=== PATIENT | female | born 1950 | race Caucasian/White ===

== ENCOUNTER 2017-11-02 14:53 | Emergency (ER) | payer BC ==
[2017-11-02 15:02] VITALS: BP 143/58
--- NOTE | 2017-11-02 15:09 | UC ---
Hand/Wrist HPI - HPI Summary HPI Summary: Foosh left wrist at 5:30 this morning--pain and swelling in wrist - History Of Current Complaint Chief Complaint: UCUpperExtremity Stated Complaint: WRIST INJURY Time Seen by Provider: 11/02/17 15:08 Hx Obtained From: Patient ?: No Mechanism Of Injury: Foosh Onset/Duration: Sudden Onset, Lasting Hours Severity Initially: Moderate Severity Currently: Moderate Pain Intensity: 5 Character Of Pain: Sharp, Aching Aggravating Factor(s): Movement Alleviating Factor(s): Rest Associated Signs And Symptoms: Positive: Swelling Related History: Dominant Hand Right - Allergies/Home Medications Allergies/Adverse Reactions: Allergies Allergy/AdvReac Type Severity Reaction Status Date / Time No Known Allergies Allergy Verified 11/02/17 15:02 PMH/Surg Hx/FS Hx/Imm Hx Endocrine History: Hypothyroidism, Dyslipidemia Cardiovascular History: Hypertension Other History Of: Negative For: HIV, Hepatitis B, Hepatitis C, Anticoagulant Therapy - Surgical History Surgical History: Yes Surgery Procedure, Year, and Place: plate to lt knee, eye lid surgery - Family History Known Family History: Positive: Cardiac Disease Negative: Hypertension - Social History Occupation: Employed Full-time Lives: With Family Alcohol Use: Rare Substance Use Type: None Smoking Status (MU): Former Smoker Review of Systems Constitutional: Negative Skin: Negative Eyes: Negative ENT: Negative Respiratory: Negative Cardiovascular: Negative Gastrointestinal: Negative Genitourinary: Negative Motor: Negative Neurovascular: Negative Musculoskeletal: Arthralgia - left wrsit Neurological: Negative Psychological: Negative Is Patient Immunocompromised?: No All Other Systems Reviewed And Are Negative: Yes Physical Exam Triage Information Reviewed: Yes Appearance: Well-Appearing, Well-Nourished, Pain Distress - mild Vital Signs: Initial Vital Signs Temp 98.1 F 11/02/17 14:58 Pulse 69 11/02/17 14:58 Resp 20 11/02/17 14:58 BP 143/58 11/02/17 14:58 Pulse Ox 98 11/02/17 14:58 Vital Signs Reviewed: Yes Eye Exam: Normal Eyes: Positive: Conjunctiva Clear ENT Exam: Normal ENT: Positive: Normal ENT inspection, Hearing grossly normal. Negative: Nasal drainage, Trismus, Muffled voice, Hoarse voice, Dental tenderness Dental Exam: Normal Neck exam: Normal Neck: Positive: Supple, Nontender Respiratory Exam: Normal Respiratory: Positive: Chest non-tender, No respiratory distress, No accessory muscle use Cardiovascular Exam: Normal Cardiovascular: Positive: RRR, Pulses Normal, Brisk Capillary Refill Musculoskeletal Exam: Normal Musculoskeletal: Positive: Strength Limited @ - left wrist, ROM Limited @ - left wrist, Edema @ - left wrist Neurological Exam: Normal Neurological: Positive: Alert, Muscle Tone Normal Psychological Exam: Normal Skin Exam: Normal Diagnostics - Radiology No standard instances Xray Interpretation: Positive (See Comments) - dorsal angulated, shortened, distal radial fracture Radiology Interpretation Completed By: Radiologist Re-Evaluation - Re-Evaluation First Eval Change: Improved - sugar darya splint applied, with increase comfort n/m/c intact before and after splinting Hand/Wrist Course/Dx - Course Course Of Treatment: RICE, pain control follow with ortho, follow BP with pcp - Differential Dx/Diagnosis Provider Diagnoses: Angulated distal radius fracture, elevated blood pressure in poor control Discharge - Discharge Plan Condition: Stable Disposition: HOME Prescriptions: Hydrocodone-Acetaminophen [Hydrocodone/Acetaminophen 5-325 mg] 1 tab PO Q6H PRN #10 tab MDD 4 PRN Reason: Pain - Moderate To Severe Ibuprofen TAB* [Motrin TAB* 600 MG] 600 mg PO Q6H PRN #40 tab PRN Reason: Pain - Mild To Moderate Patient Education Materials: Wrist Fracture in Adults (ED), Hypertension (ED), R.I.C.E. Treatment (ED) Referrals: Marilee Ojeda RN [Primary Care Provider] - 2 Weeks Henri Mason MD [Medical Doctor] - 11/03/17 3:00 pm
[2017-11-02] MEDS ORDERED: Ibuprofen TAB* 600 MG PO ONE (15:17)
--- NOTE | 2017-11-02 15:33 | RAD ---
Indication: Fall on left wrist. 3 views of the wrist demonstrates fracture of the distal radius with dorsal angulation and foreshortening. IMPRESSION: Fracture distal radius with foreshortening and dorsal angulation.
== END 2017-11-02 16:53 | disposition home or self-care (01) ==
LOC: UCEAST 14:53
DX: S52.502A Unspecified fracture of the lower end of left radius, initial encounter for closed fracture (principal); W19.XXXA Unspecified fall, initial encounter; Y93.9 Activity, unspecified; Y92.9 Unspecified place or not applicable; R03.0 Elevated blood-pressure reading, without diagnosis of hypertension; Z87.891 Personal history of nicotine dependence
CPT/HCPCS: 99212; A9270-GY; G0463

== ENCOUNTER 2017-11-09 12:06 | Day surgery (SDC) | payer BC ==
[~2017-11-09 12:06] MED LIST: Buffered Lidocaine 0.9% SYRIN* 5 ML/SYR SYRINGE INTRADERM ONE; Bupivacaine 0.25% SDV* 30 ML ONE; Dexamethasone IV* 4 MG/ML 1 ML (4 MG) IV SLOW PU ONE; Famotidine IV* 10 MG/ML 2 ML (20 mg) IV ONE
[2017-11-09] MEDS ORDERED: Midazolam* 1 MG/ML 2 ML VIAL (2 MG) ONE (12:19)
[2017-11-09] MEDS ORDERED: fentaNYL* 50 MCG/ML 2 ML VIAL (100 MCG VIAL) ONE (12:19)
[2017-11-09] MEDS ORDERED: Buffered Lidocaine 0.9% SYRIN* 5 ML/SYR SYRINGE ONE (12:39)
[2017-11-09] MEDS ORDERED: Dexamethasone IV* 4 MG/ML 1 ML (4 MG) ONE ×2 (12:39→15:14)
[2017-11-09] MEDS ORDERED: ceFAZolin 2 GM PREMIX (*) 2 GM/50 ML BAG IVPB ONE (12:39)
[2017-11-09] MEDS ORDERED: Famotidine IV* 10 MG/ML 2 ML (20 mg) ONE (12:42)
[2017-11-09] MEDS ORDERED: Naloxone* 0.4 MG/ML 1 ML VIAL IV PRN (14:29)
[2017-11-09] MEDS ORDERED: Ondansetron INJ* 2 MG/ML VIAL ONE (15:14)
[2017-11-09] MEDS ORDERED: Propofol* 10 MG/ML 20 ML BTL IV PUSH ONE (15:14)
[2017-11-09] MEDS ORDERED: Lidocaine 2% PF * 5 ML VIAL ONE (15:15)
[2017-11-09] MEDS ORDERED: Bupivacaine 0.5% W/EPI SDV* 30 ML VIAL ONE (15:15)
[2017-11-09 16:54] VITALS: BP 143/61
--- NOTE | 2017-11-10 08:32 | RAD ---
CPT II Codes: 6045F INDICATION: Left distal radius fracture TECHNIQUE: Intraoperative fluoroscopy was provided during left wrist ORIF.. FINDINGS: 6 spot films depict anatomic placement of a left distal radius plate and screw fixator.. Fluoroscopy time: 47 seconds IMPRESSION: As above.
--- NOTE | 2017-11-10 14:43 | OP ---
DATE OF OPERATION: 11/09/17 - [facility] DATE OF : 50 SURGEON: Henri Mason MD DIRECTOR OF RADIO SERVICES: SHY Sheffield. An program support assistant was needed for the entirety of the procedure to aid in position of the arm in retraction. ANESTHESIOLOGIST: Jacquelyn Foster MD ANESTHESIA: Peripheral nerve block plus general. PRE-OP DIAGNOSIS: Left intraarticular distal radius fracture. POST-OP DIAGNOSIS: Left intraarticular distal radius fracture. OPERATIVE PROCEDURE: Open reduction internal fixation left intraarticular, greater than 3 fragments, distal radius fracture. INDICATIONS: Jena had a very displaced and shortened distal radius fracture. We talked about risks and benefits. She had elected to proceed with surgery. ESTIMATED BLOOD LOSS: 10 mL. COMPLICATIONS: None. FINDINGS: Highly comminuted distal radius fracture. It is extremely impacted. DESCRIPTION OF PROCEDURE: Jena was seen in the preoperative holding area. We came back to the operating room. A nerve block was performed. The arm was prepped and draped in the usual fashion. A time-out was performed. I made a longitudinal incision over the distal aspect of the FCR tendon. The FCR tendon sheath was released. The tendon was retracted ulnarly. The subsheath was released. The pronator quadratus was released off the radial aspect of its radial margin and teed back distally preserving the distal 3 mm of extrinsic capsular ligament. The fracture site was seen. It was removed to its soft tissue. It was irrigated out and fracture fragments were mobilized. I then placed the hand in the Arthrex traction hand landrum. 10 pounds of traction were hung off at the end of the bed. I performed closed reduction maneuver and got the fragments aligned. The bone was very soft and delicate. We were able to get it nicely lined up. At this point, I brought in my plates and I measured them. The distal 5 hole plate was too wide and so I just selected the standard plate. This was placed on the volar aspect of the distal radius just from the ulnar margin of the bone. The plate was pinned into place. Fluoroscopic images confirmed placement of the plate. I went ahead and placed one 2.4-mm cortical screw in the oblong hole. I then placed the 4 distal locking screws, the 3 most ulnar were standard locking screws. The radial styloid screw was a variable angle screw. Once these screws were in place, I went ahead and checked the reduction. Everything looked very nice. I filled in 2 more proximal holes with 2.4-mm cortical screws. I filled the 2 more distal screws with locking screw. At this point, I checked final fluoroscopic imaging. The reduction looked excellent. The placement of the plate nicely on the ulnar side of the bone. The fragments were in excellent alignment. Traction had been removed. We irrigated out the wound copiously. The pronator was closed with 2-0 Vicryl suture. The skin was closed with 4-0 Monocryl and Steri-Strips. The wound was dressed with Xeroform, 4x4s, sterile Webril, and a cock-up wrist splint was applied. Tourniquet was deflated. She was taken to the recovery room in stable condition. [id number]/CPS #: [id number] MTDD
== END 2017-11-09 17:40 | disposition home or self-care (01) ==
LOC: OR 12:06
PROVIDERS: ATTEND Orthopaedic Surgery Hand Surgery
DX: S52.572A Other intraarticular fracture of lower end of left radius, initial encounter for closed fracture (principal); I10 Essential (primary) hypertension; E78.5 Hyperlipidemia, unspecified; E03.9 Hypothyroidism, unspecified; W00.0XXA Fall on same level due to ice and snow, initial encounter; Y92.9 Unspecified place or not applicable; Z87.891 Personal history of nicotine dependence; G89.18 Other acute postprocedural pain
CPT/HCPCS: 76000; C1713; J0690; J1100; J2250; J2405; J2704; J3010